=== PATIENT | female | born 1975 | race Caucasian/White ===

== ENCOUNTER 2019-06-08 16:58 | Emergency (ER) | payer MEDICAID ==
[~2019-06-08] VITALS: Ht 149.9 cm; Wt 62.1 kg
[2019-06-08 17:02] VITALS: BP_SYST 109
--- NOTE | 2019-06-08 17:07 | NUR ---
Patient triaged and placed in waiting room. VSS and patient appears in no acute distress at this time. Accompanied by daughter, awaiting available bed, and MD notified of need for MSE.
--- NOTE | 2019-06-08 18:34 | NUR ---
Patient to ER bed h1 for evaluation. Side rails up.
--- NOTE | 2019-06-08 18:35 | NUR ---
Pt AAOx4 ambulated into ED c/o R ear pain and headache since terri and now c/o bloodshot in R eye. Took 1 g tylenol yesterday with no relief. Skin pink dry and warm, breathing even and unlabored. No other injuries/complaints per pt/noted. Will continue to monitor.
--- NOTE | 2019-06-08 19:10 | NUR ---
Report given to Hailey TORRES
--- NOTE | 2019-06-08 21:00 | NUR ---
Patient left without being seen. No further treatment provided. ER MD aware
== END 2019-06-08 21:00 | disposition left against medical advice (07) ==
LOC: SED 16:58
DX: Z53.21 Procedure and treatment not carried out due to patient leaving prior to being seen by health care provider (principal)